=== PATIENT | female | born 1985 | race Caucasian/White ===

== ENCOUNTER → 2017-10-03 | Outpatient (CLI) | payer OTHER ==
[~2017-10-03] MED LIST: FLUO20CA35 PO; LORA-741 PO; METH500T37 PO; OMEP20CA9 PO; RANI300T2 PO
== END | disposition home or self-care (01) ==
LOC: C.PAPS 14:36
PROVIDERS: ATTEND Physician Assistant
DX: Z01.419 Encounter for gynecological examination (general) (routine) without abnormal findings (principal)

== ENCOUNTER → 2017-10-12 | Outpatient (CLI) | payer BC, OTHER ==
[~2017-10-12] MED LIST changes: +METH-445 PO; -METH500T37 PO
== END | disposition home or self-care (01) ==
LOC: C.PATHSPEC 14:41
PROVIDERS: ATTEND Physician Assistant
DX: D28.0 Benign neoplasm of vulva (principal)

== ENCOUNTER 2020-09-15 07:06 | Inpatient (IN) ==
[2020-09-15] MEDS ORDERED: OXYTOCIN 30 UNITS/500 ML BAG IV PRN ×3 (08:07→22:35)
[2020-09-15] MEDS ORDERED: PENICILLIN G POTASSIUM 6 MU in DEXTROSE 5% 250 ML IV STA (08:11)
--- NOTE | 2020-09-15 08:15 | History & Physical Report ---
Date of Service September 15, 2020 Assessment & Plan Admission and Anticipated Discharge Date Admission Date: September 15, 2020 IUP presents in labor requesting epidural analgesia please see orders - will treat for GBS carrier status based on urine culture results anticipate vaginal History of Present Illness Primary Care Provider: NO PCP Patient is a 34 yo white female G1 who presents to L& after having contractions all night long following placement of cervical balloon that fell out at 2315 last PM. contractions have gotten steadily closer together & more intense. no SPROM but she has ahd increased bloody show. GBS (+) in urine. complicated by AMA status & diet controlled GDM. Allergies Allergy/AdvReac Type Severity Reaction Status Date / Time No Known Drug Allergies Allergy Unknown Verified 09/15/20 07:18 Home Medications Medication Instructions Recorded Confirmed Type acetone (urine) test #50 ea 07/24/20 09/14/20 Rx lancets 33 gauge #150 ea 07/28/20 09/14/20 Rx blood sugar diagnostic #400 ea 07/29/20 09/14/20 Rx lancets #400 ea 07/29/20 09/14/20 Rx ferrous sulfate 325 mg PO DAILY 09/14/20 09/15/20 History vit no.[id number] 1 tab PO DAILY 09/14/20 09/15/20 History [ Vitamin] Patient History Medical History Abnormal biochemical finding on screening of mother Dermal nevus Elderly primigravida Encounter for supervision in primigravida, antepartum Gestational diabetes mellitus (GDM) affecting , antepartum History of depression History of migraine Surgical History Hx of biopsy vulva S/P lymph node biopsy Neck lymph node; benign Family History Denies family history of Ovarian cancer Breast cancer Colonic polyp Uterine cancer Social History Smoking Status: Current every day smoker Cigarettes Per Day: 7; Second Hand Exposure: No; Hx Alcohol Use: Yes Hx Substance Use: No Preferred Language: Uzbek Beliefs That Will Affect Care: None marital status: Single marital status details: Bebeto Farnsworth (38) [phone] Current Living Situation: Significant Other Current Living Situation Comment: lives with fob, dogs, cats-fob to change litter current occupational status: employed current occupation: nurse [employer] Other Information That Helps Us Care for You: No Feels Safe at Home: Yes Safety Concerns: Feels Safe At This Time Dental Care, Regularly: Yes Seatbelt Use: always Sunscreen Use: Yes Assistive Devices: None Review of Systems All systems reviewed & are unremarkable except as noted in HPI & below Physical Exam Constitutional: WD/WN, vitals as above Respiratory: normal respiratory effort, lungs clear to auscultation Cardiovascular: RRR, no murmur, no edema Gastrointestinal (Abdomen): normal bowel sounds, soft, nontender, no hepatosplenomegaly Psychiatric: A+Ox3, euthymic affect Genitourinary: OB Exam Abdomen: + vertex, + estimated weight (7-8 pounds) and + regular contractions (Q 5-6 minutes) Manual OB Exam: + cervical dilation (posterior) 5 cm, + cervical effacement 90% and + station 0 OB Exam Monitor Tracing: + external FHT monitor used, + external uterine monitor used, + category I and + normal FHT variability Results & Data ([facility]) Vital Signs (Past 12 Hours) Vital Signs Temp Pulse Resp BP 09/15/20 07:17 97.9 F 18 09/15/20 07:15 99 H 119/87 Coding Level of Care Code None
[2020-09-15] MEDS: LACTATED RINGER'S 1,000 ML IV PRN ×3 (08:22→16:17)
[2020-09-15] MEDS ORDERED: SODIUM CHLORIDE 0.9% INJ 10 ML VIAL ONE (08:26)
[2020-09-15] MEDS ORDERED: ePHEDrine sulfate 50 MG/ML AMP ONE (08:26)
[2020-09-15] MEDS ORDERED: BUPIVACAINE 0.25% 30 ML VIAL ONE (08:26)
[2020-09-15] MEDS ORDERED: fentaNYL 2MCG/ML ROPIVACAINE 1.25MG/ML 100 ML BAG EPI ONE (08:27)
[2020-09-15] MEDS ORDERED: fentaNYL citrate 100 MCG/2 ML VIAL ONE (08:27)
[2020-09-15 08:34] LABS: Hematocrit (blood only) 38.6 % (37-47); Hemoglobin 13.1 g/dL (12.0-16.0); Mean Corpuscular Hemoglobin 33.6 pg (25-34); Platelet Count 247 K/uL (130-400); RDW Coefficient of Variation 14.1 % (11.5-14.5); RDW Standard Deviation 50.4 fL (36.4-46.3); White Blood Count 16.24 K/uL (4.8-10.8)
[2020-09-15 08:37] LABS: Mean Corpuscular Hgb Conc 33.9 g/dL (32-36)
--- NOTE | 2020-09-15 09:00 | History & Physical Report ---
Date of Service September 15, 2020 Assessment & Plan (1) Prolonged , antepartum: -Tracing is category 2 with variability and accelerations -Patient is uncomfortable with contractions and an epidural will be placed -Patient with positive beta strep, will be started on penicillin -After her second penicillin dose we will have artificial rupture of membranes -If contractions space out after epidural will start Pitocin augmentation -Anticipate vaginal delivery Admission and Anticipated Discharge Date Admission Date: September 15, 2020 History of Present Illness Chief Complaint: Postdates induction Primary Care Provider: NO PCP TheThe patient is a 34-year-old 1 para 0, EDC of 11 September by dates and first trimester ultrasound, who admits for a post dates induction. The patient's was remarkable for gestational diabetes diagnosed at 28 weeks. She was followed per protocol and all abdominal circumferences were less than the 75th percentile. She was managed with diet alone. The patient had a cervical Queen placed last night for ripening. Queen dislodged at 11:30 PM. The contractions have increased in intensity and she presented to labor and delivery this morning for induction/labor check. Laboratory values for the show blood type of O-, antibody negative, she received RhoGam on 24 June, she was rubella immune, hepatitis B negative, she declined all genetic testing, and she had positive GBS bacteria. Patient was COVID-19 negative on 10 September. Allergies Allergy/AdvReac Type Severity Reaction Status Date / Time No Known Drug Allergies Allergy Unknown Verified 09/15/20 07:18 Home Medications Medication Instructions Recorded Confirmed Type acetone (urine) test #50 ea 07/24/20 09/14/20 Rx lancets 33 gauge #150 ea 07/28/20 09/14/20 Rx blood sugar diagnostic #400 ea 07/29/20 09/14/20 Rx lancets #400 ea 07/29/20 09/14/20 Rx ferrous sulfate 325 mg PO DAILY 09/14/20 09/15/20 History vit no.[id number] 1 tab PO DAILY 09/14/20 09/15/20 History [ Vitamin] Patient History Medical History Abnormal biochemical finding on screening of mother Dermal nevus Elderly primigravida Encounter for supervision in primigravida, antepartum Gestational diabetes mellitus (GDM) affecting , antepartum History of depression History of migraine Surgical History Hx of biopsy vulva S/P lymph node biopsy Neck lymph node; benign Family History Denies family history of Ovarian cancer Breast cancer Colonic polyp Uterine cancer Social History Smoking Status: Current every day smoker Cigarettes Per Day: 7; Second Hand Exposure: No; Hx Alcohol Use: Yes Hx Substance Use: No Preferred Language: Burkinan Beliefs That Will Affect Care: None marital status: Single marital status details: Bebeto Farnsworth (39) [phone] Current Living Situation: Significant Other Current Living Situation Comment: lives with fob, dogs, cats-fob to change litter current occupational status: employed current occupation: nurse [employer] Other Information That Helps Us Care for You: No Feels Safe at Home: Yes Safety Concerns: Feels Safe At This Time Dental Care, Regularly: Yes Seatbelt Use: always Sunscreen Use: Yes Assistive Devices: None Physical Exam Constitutional: WD/WN, vitals as above Respiratory: Auscultation: lungs clear to auscultation bilaterally Cardiovascular: RRR, no murmur, no edema Extremities: no calf tenderness Gastrointestinal (Abdomen): Gravid, vertex, positive heart tones, estimated weight of 7-1/2 pounds. Genitourinary: Cervix: 4 to 5 cm / 90%/-2/mid position/bulging membranes Results & Data ([facility]) Vital Signs (Past 12 Hours) Vital Signs Temp Pulse Resp BP 09/15/20 07:17 97.9 F 18 09/15/20 07:15 99 H 119/87 Coding Level of Care Code None Diagnoses Prolonged , antepartum O48.1
--- NOTE | 2020-09-15 09:28 | Anesthesiology Consultation ---
Date of Service September 15, 2020 Assessment & Plan Chart Review Chart Review: Patient NOT seen in Pre Admission Testing and Acceptable Risk for Labor Epidural Consults Requested none ASA ASA3 Proposed Anesthesia Anesthesia Type: Labor Epidural and CSE Risk / Benefits Reviewed With: PT / POA / Parent / Guardian, Accepts Plan and Informed Consent Obtained Additional Comments: covid test negative History Height/Weight Height: 5 ft 6 in Weight: 94.347 kg Allergies Allergy/AdvReac Type Severity Reaction Status Date / Time No Known Drug Allergies Allergy Unknown Verified 09/15/20 07:18 Medications Home Medications Medication Instructions Recorded Confirmed Last Taken acetone (urine) test #50 ea 07/24/20 09/14/20 Unknown lancets 33 gauge #150 ea 07/28/20 09/14/20 Unknown blood sugar diagnostic #400 ea 07/29/20 09/14/20 Unknown lancets #400 ea 07/29/20 09/14/20 Unknown ferrous sulfate 325 mg PO DAILY 09/14/20 09/15/20 09/14/20 17:00 vit no.[id number] 1 tab PO DAILY 09/14/20 09/15/20 09/15/20 06:30 [ Vitamin] Active Medications Generic Name Dose Route Start Last Admin Trade Name Freq PRN Reason Stop Dose Admin Lactated Ringer's 1,000 mls @ 125 mls/hr 09/15/20 08:07 09/15/20 09:21 Lr IV 09/17/20 08:06 125 mls/hr .Q8H PRN Administration L&D Protocol Protocol NPO Date Last Intake of Fluids: 09/15/20 Time Last Intake of Fluids: 08:00 Date Last Intake of Solids: 09/15/20 Time Last Intake of Solids: 06:30 Past Medical History Medical History Abnormal biochemical finding on screening of mother Dermal nevus Elderly primigravida Encounter for supervision in primigravida, antepartum Gestational diabetes mellitus (GDM) affecting , antepartum History of depression History of migraine Exercise / Class Metabolic Activity II 4-5 Yardwork/Stairs/Walk up hill Past Family History Family History Denies family history of Ovarian cancer Breast cancer Colonic polyp Uterine cancer Past Surgical History Surgical History Hx of biopsy vulva S/P lymph node biopsy Neck lymph node; benign Past Anesthesia History No Hx of Anesthesia Complications and No Family Hx of Anesthesia Complications History of PONV No Hx of PONV and No Hx of Motion Sickness Social History Smoking Status: Current every day smoker tobacco type: cigarettes Smoking cigarettes per day: 7 Hx Alcohol Use: Yes Hx Substance Use: No substance use type: does not use Physical Exam Vital Signs Last Vital Signs Temp 36.6 C 09/15/20 07:17 Pulse 85 09/15/20 09:20 Resp 18 09/15/20 07:17 BP 119/87 09/15/20 07:15 Pulse Ox 98 09/15/20 09:20 Constitutional + obese ENMT Mouth: no dentition abnormality Thyromental Distance: > or= 3.5 Finger Breadths Mallampati Class: II Neck normal visual inspection and trachea midline; neck extension not limited Respiratory normal respiratory effort, lungs clear to auscultation normal respiratory effort Auscultation: lungs clear to auscultation bilaterally Cardiovascular RRR, no murmur, no edema Rate/Rhythm: regular rate and regular rhythm Heart Sounds: no murmur Vessels: no carotid bruit Musculoskeletal Head/Neck/Chest: full ROM of neck Spine: lumbar spine normal to inspection; normal cervical ROM Neurologic moves all extremities Motor/Sensory: no sensory deficit Psychiatric A+Ox3, euthymic affect Orientation: alert and oriented x 3 Testing Laboratory Results 09/15/20 08:19
[2020-09-15] MEDS ORDERED: LIDOCAINE HCL 1% 20 ML VIAL ONE (09:41)
[2020-09-15] MEDS ORDERED: fentaNYL 2MCG/ML ROPIVACAINE 1.25MG/ML 100 ML BAG EPI PRN (09:52)
[2020-09-15] MEDS ORDERED: diphenhydrAMINE 50 MG/ML VIAL IV PRN (09:52)
[2020-09-15] MEDS ORDERED: PROMETHAZINE HCL 25 MG in SODIUM CHLORIDE 0.9% 50 ML IV PRN (09:52)
[2020-09-15] MEDS ORDERED: ONDANSETRON INJ 2 MG/ML 2 ML VIAL IV PRN (09:52)
[2020-09-15] MEDS ORDERED: ePHEDrine sulfate 50 MG/ML AMP IV PRN (09:52)
[2020-09-15] MEDS ORDERED: NALOXONE HCL 0.4 MG/1 ML VIAL/CARP IV PRN (09:52)
[2020-09-15] MEDS ORDERED: NALOXONE HCL 1 MG in SODIUM CHLORIDE 0.9% 1000ML 1,000 ML IV PRN (09:52)
[2020-09-15] MEDS: PENICILLIN G POTASSIUM 3 MU in DEXTROSE 5% 100 ML IV PRN ×2 (12:24→16:30)
--- NOTE | 2020-09-15 13:44 | Labor Progress Brief Note ---
Date of Service September 15, 2020 Subjective Reason For Note: Routine Evaluation Assessment & Plan (1) Prolonged , antepartum: - tracing Cat II - IUPC placed to better titrate pitocin - continue induction Admission and Anticipated Discharge Date Admission Date: September 15, 2020 Physical Exam Genitourinary: Cervix: 5/100/0, AROM. meconium, IUPC placed Results & Data ([facility]) Vital Signs (Past 12 Hours) Vital Signs Temp Pulse Resp BP Pulse Ox 09/15/20 13:40 82 99 09/15/20 13:35 85 98 09/15/20 13:32 82 118/65 91 09/15/20 13:30 88 95 09/15/20 13:25 84 98 09/15/20 13:20 76 98 09/15/20 13:15 78 106/64 99 09/15/20 13:10 90 97 09/15/20 13:09 94 H 93 09/15/20 13:05 76 100 09/15/20 13:00 82 20 109/68 99 09/15/20 12:57 83 93 09/15/20 12:55 80 97 09/15/20 12:51 89 92 09/15/20 12:50 74 100 09/15/20 12:47 85 107/67 09/15/20 12:45 77 18 100 09/15/20 12:40 76 99 09/15/20 12:37 91 H 90 09/15/20 12:35 85 100 09/15/20 12:32 79 122/74 09/15/20 12:30 78 18 100 09/15/20 12:25 83 100 09/15/20 12:20 85 100 09/15/20 12:16 80 128/73 09/15/20 12:15 94 H 16 100 09/15/20 12:14 82 90 09/15/20 12:10 76 98 09/15/20 12:05 81 99 09/15/20 12:01 74 112/63 09/15/20 12:00 75 20 100 09/15/20 11:58 100 H 94 09/15/20 11:55 86 97 09/15/20 11:50 78 100 09/15/20 11:46 96 H 91 09/15/20 11:45 91 H 18 99 09/15/20 11:40 76 98 09/15/20 11:39 79 116/66 09/15/20 11:35 85 99 09/15/20 11:34 87 111/71 09/15/20 11:30 83 20 113/75 100 09/15/20 11:25 85 99 09/15/20 11:24 85 117/74 09/15/20 11:20 90 99 09/15/20 11:19 90 115/74 09/15/20 11:18 100 H 93 09/15/20 11:15 88 16 98 09/15/20 11:14 94 H 116/67 09/15/20 11:10 81 117/67 98 09/15/20 11:05 84 98 09/15/20 11:04 85 114/67 09/15/20 11:00 97.9 F 91 H 18 98 09/15/20 10:59 81 112/67 09/15/20 10:55 88 97 09/15/20 10:54 86 115/66 09/15/20 10:50 82 116/69 100 09/15/20 10:45 85 16 100 09/15/20 10:44 101 H 103/59 L 09/15/20 10:40 83 99 09/15/20 10:38 87 113/68 09/15/20 10:36 88 114/67 09/15/20 10:35 83 98 09/15/20 10:34 83 110/64 09/15/20 10:32 86 108/64 09/15/20 10:30 88 16 108/62 99 09/15/20 10:28 88 106/61 09/15/20 10:26 96 H 109/71 92 09/15/20 10:25 100 H 106/64 99 09/15/20 10:22 85 128/67 09/15/20 10:20 96 H 122/58 L 99 09/15/20 10:18 95 H 127/59 L 09/15/20 10:16 89 132/66 09/15/20 10:15 102 H 18 99 09/15/20 10:14 98 H 121/63 09/15/20 10:12 98 H 131/72 09/15/20 10:10 89 129/66 100 09/15/20 10:08 100 H 117/58 L 09/15/20 10:06 93 H 115/61 09/15/20 10:05 92 H 100 09/15/20 10:04 90 108/63 09/15/20 10:02 103 H 104/56 L 09/15/20 10:01 93 H 121/68 09/15/20 10:00 97 H 18 99 09/15/20 09:58 114 H 100/57 L 09/15/20 09:56 91 H 108/63 09/15/20 09:55 94 H 100 09/15/20 09:54 93 H 98/58 L 09/15/20 09:52 88 88/52 L 09/15/20 09:50 86 98 09/15/20 09:45 89 98 09/15/20 09:40 94 H 96 09/15/20 09:37 91 H 94 09/15/20 09:35 83 98 09/15/20 09:30 90 97 09/15/20 09:25 94 H 96 09/15/20 09:20 85 98 09/15/20 09:15 95 H 99 09/15/20 09:10 89 99 09/15/20 07:17 97.9 F 18 09/15/20 07:15 99 H 119/87 Coding Level of Care Code None Diagnoses Prolonged , antepartum O48.1
--- NOTE | 2020-09-15 20:00 | Delivery Summary ---
Vaginal Delivery Summary Date of Service September 15, 2020 Vaginal Delivery Summary Findings: Viable male infant with Apgars of 8 and 9. Arterial and venous cord gases are pending. Baby delivered over midline second-degree laceration. Meconium at . Good vigorous cry at terminating meconium resuscitation. Cord gases cord blood samples obtained. Placenta delivered spontaneously. Laceration repaired with 4-0 Vicryl. Estimated blood loss 300 cc. Labor note: The patient is a 34-year-old 1 para 0, EDC of 11 September by dates and first trimester ultrasound, who admits for a post dates induction. The patient's was remarkable for gestational diabetes diagnosed at 28 weeks. She was followed per protocol and all abdominal circumferences were less than the 75th percentile. She was managed with diet alone. The patient had a cervical Queen placed last night for ripening. Queen dislodged at 11:30 PM. The contractions have increased in intensity and she presented to labor and delivery this morning for induction/labor check. Laboratory values for the show blood type of O-, antibody negative, she received RhoGam on 24 June, she was rubella immune, hepatitis B negative, she declined all genetic testing, and she had positive GBS bacteria. Patient was COVID-19 negative on 10 September. The patient was a 4 cm upon arrival and was very uncomfortable. Because of the positive GBS status she was started on penicillin. Anesthesia was consulted and an epidural was placed. After placement of the epidural the patient's contractions spaced out and Pitocin augmentation was initiated. After her second dose of penicillin was then she had artificial rupture of membranes for meconium. Intrauterine pressure catheter was placed to monitor contractions. Patient made slow steady progress and progressed to full dilatation. She pushed for approximately 1 hour delivering the viable male . Cord gases cord blood samples obtained. Good vigorous cry at terminating meconium resu scitation. Placenta delivered spontaneously. Inspection of the perineum showed a second-degree perineal laceration which was repaired with 4-0 Vicryl. Estimated blood loss 300 cc. Sponge and needle count was correct. [facility] Vaginal Delivery Charge Vaginal Delivery Codes: 60324 global code for the antepartum, delivery, and post-
[2020-09-15 20:15] LABS: Base Excess Cord Arterial Bld -8.4 mEq/L (-9-1.8); CO2 Cord Arterial Blood 46 mmHg (39.1-73.5); HCO3 Cord Arterial Blood 19 mmol/L (19.7-28.5); PO2 Cord Arterial Blood 28 mmHg (4.1-31.7); pH Cord Arterial Blood 7.23 (7.1-7.38)
--- NOTE | 2020-09-15 20:30 | Anesthesia Procedure Note ---
Date of Service September 15, 2020 Anesthesia Post Epidural Note Vital Signs Vital Signs: Temp Pulse Resp BP Pulse Ox 37.3 C 102 H 18 126/72 84 L 09/15/20 19:40 09/15/20 20:15 09/15/20 20:10 09/15/20 20:15 09/15/20 19:44 Pain Intensity Bilateral Back: Pain Intensity: 0 Notes Mental Status: alert / awake / arousable Nausea / Vomiting: adequately controlled Pain: adequately controlled Airway Patency, RR, SpO2: stable & adequate BP & HR: stable & adequate Hydration State: stable & adequate Neuraxial Anesthesia: was administered and sensory block is resolving Anesthetic Complications: no major complications apparent Epidural: Removed without complications and With tip intact
[2020-09-15] MEDS: IBUPROFEN 600 MG TAB PO PRN (20:57)
[2020-09-15] MEDS ORDERED: HYDROCORTISONE ACETATE 25 MG SUPP PR PRN (22:35)
[2020-09-15] MEDS ORDERED: DIPHTHERIA/TETANUS/PERTUSSIS 0.5 ML SYR/VIAL IM ONE (22:35)
[2020-09-15] MEDS ORDERED: SUPERCREAM 0.870% 15 GM JAR EXT PRN (22:35)
[2020-09-15] MEDS ORDERED: BENZOCAINE 20% AER SPR 82.5 GM CAN EXT PRN (22:35)
[2020-09-15] MEDS ORDERED: ACETAMINOPHEN 325 MG TAB PO PRN (22:35)
[2020-09-15] MEDS ORDERED: ACETAMINOPHEN W/CODEINE #3 1 TAB PO PRN (22:35)
[2020-09-16] MEDS: IBUPROFEN 600 MG TAB PO PRN ×4 (01:03→20:39)
[2020-09-16] MEDS ORDERED: miSOPROStoL 200 MCG TAB PR ONE (05:55)
[2020-09-16] MEDS ORDERED: miSOPROStoL 200 MCG TAB ONE (05:55)
--- NOTE | 2020-09-16 06:11 | Obstetrical Progress Note ---
Date of Service September 16, 2020 Assessment & Plan (1) bleeding: -Most of a blood clot within the uterus has been evacuated -Patient may not be completely emptying her bladder -We will insert a Queen catheter to drain bladder continuously in the short-term -We will place Cytotec 800 mcg rectally -We will check a stat H&H -Explained situation to the patient, all questions answered -Continued observation of bleeding Subjective called by nursing to evaluate vaginal bleeding patient states that she feels like she has a difficulty emptying her bladder. When she got up she passed clot. Nurse hung a second bag of Pitocin but she is still saturating a pad. Physical Exam Constitutional WD/WN, vitals as above Gastrointestinal (Abdomen) Fundus firm below umbilicus Musculoskeletal No deep calf tenderness Genitourinary Digital examination shows the cervix to be dilated approximately 400 cc of clotted and nonclotted blood are expressed. Results & Data ([facility]) Vital Signs (Past 12 Hours) Vital Signs Temp Pulse Pulse Resp BP BP Pulse Ox 09/16/20 04:45 97.5 F L 92 H 18 118/80 09/16/20 00:00 97.7 F 82 18 118/73 09/15/20 22:38 98.6 F 99 H 18 107/63 09/15/20 21:40 18 09/15/20 21:30 113 H 114/71 09/15/20 21:16 106 H 116/73 09/15/20 21:10 18 09/15/20 21:00 110 H 131/67 09/15/20 20:45 103 H 126/71 09/15/20 20:40 18 09/15/20 20:25 18 09/15/20 20:15 102 H 126/72 09/15/20 20:10 18 09/15/20 20:00 90 118/81 09/15/20 19:45 111 H 120/73 09/15/20 19:44 98 H 84 L 09/15/20 19:40 99.1 F 101 H 18 99 09/15/20 19:35 96 H 97 09/15/20 19:31 98 H 134/71 09/15/20 19:30 104 H 97 09/15/20 19:25 101 H 72 L 09/15/20 19:24 105 H 78 L 09/15/20 19:20 100 H 98 09/15/20 19:16 99 H 76 L 09/15/20 19:15 108 H 138/77 98 09/15/20 19:10 95 H 97 09/15/20 19:08 89 77 L 09/15/20 19:05 84 98 09/15/20 19:03 101 H 84 L 09/15/20 19:00 90 98 09/15/20 18:57 97 H 78 L 09/15/20 18:55 83 99 09/15/20 18:50 96 H 99 09/15/20 18:48 100 H 87 L 09/15/20 18:46 86 124/67 09/15/20 18:45 87 98 09/15/20 18:40 96 H 98 09/15/20 18:35 91 H 117/62 98 09/15/20 18:30 93 H 20 96 09/15/20 18:27 104 H 86 L 09/15/20 18:25 98 H 96 09/15/20 18:20 91 H 100 09/15/20 18:15 82 98/56 L 96 09/15/20 18:10 94 H 100
[2020-09-16 06:44] LABS: Hematocrit (blood only) 30.1 % (37-47); Hemoglobin 10.2 g/dL (12.0-16.0)
[2020-09-16] MEDS: DOCUSATE SODIUM 100 MG CAP PO SCH ×2 (09:13→20:39)
[2020-09-16] MEDS: PRENATAL VITAMIN 1 TAB PO SCH (09:13)
[2020-09-16] MEDS: FERROUS SULFATE 325 MG TAB PO SCH (09:18)
[2020-09-16] MEDS: CALCIUM CARBONATE 500 MG CHEWABLE TAB PO PRN (17:35)
--- NOTE | 2020-09-16 18:45 | Obstetrical Progress Note ---
Date of Service September 16, 2020 Assessment & Plan (1) bleeding: Bleeding is much improved from previously per pt report. Will repeat CBC. Consider PO methergine course pending CBC. Discussed w/ pt, amenable. Admission and Anticipated Discharge Date Admission Date: September 15, 2020 Subjective Made aware by nursing that had passed a clot half the size of the prior clot today. Pt overall feels well, but only feels lightheaded when she passes the clot. Otherwise is able to walk without lightheadedness or dizziness. Bleeding has drastically improved since clot removal and cytotec placement Physical Exam Constitutional: well developed and well nourished; no acute distress Respiratory: normal respiratory effort; no respiratory distress and no labored breathing Gastrointestinal (Abdomen): soft, NT, fundus firm and NT at umbilicus. With fundal massage, no leaking is noted from vagina. Pt notes it was gushing earlier with fundal massage Results & Data ([facility]) Vital Signs (Past 12 Hours) Vital Signs Temp Pulse Resp BP Pulse Ox 09/16/20 15:20 98.1 F 104 H 18 123/79 97 09/16/20 13:00 98.2 F 97 H 18 122/70 99 09/16/20 07:25 98.4 F 109 H 18 111/75 99 PG Care Time/CCT Total # of Minutes Spent Total Time Spent with Patient: Total time spent is greater than 50% in coordination of care (as documented) at patient's floor/unit and/or counseling patient: Coding Level of Care Code None Diagnoses bleeding O72.1
[2020-09-16 18:53] LABS: Hematocrit (blood only) 27.8 % (37-47); Hemoglobin 9.5 g/dL (12.0-16.0); Mean Corpuscular Hemoglobin 34.1 pg (25-34); Mean Corpuscular Volume 99.6 fL (80-100); Mean Platelet Volume 8.6 fL (7.4-10.4); Platelet Count 174 K/uL (130-400); RDW Coefficient of Variation 14.2 % (11.5-14.5); RDW Standard Deviation 51.9 fL (36.4-46.3); Red Blood Count 2.79 M/uL (4.2-5.4); White Blood Count 15.25 K/uL (4.8-10.8)
[2020-09-16 18:58] LABS: Mean Corpuscular Hgb Conc 34.2 g/dL (32-36)
[2020-09-16] MEDS ORDERED: bisacodyL 5 MG TABEC PO SCH (20:00)
[2020-09-16] MEDS: METHYLERGONOVINE MALEATE 0.2 MG TAB PO SCH (20:39)
[2020-09-17] MEDS: METHYLERGONOVINE MALEATE 0.2 MG TAB PO SCH ×2 (02:21→08:35)
[2020-09-17] MEDS: CALCIUM CARBONATE 500 MG CHEWABLE TAB PO PRN (02:21)
[2020-09-17] MEDS: IBUPROFEN 600 MG TAB PO PRN ×2 (02:21→06:29)
[2020-09-17 06:28] LABS: Hematocrit (blood only) 31.6 % (37-47); Hemoglobin 10.6 g/dL (12.0-16.0)
--- NOTE | 2020-09-17 07:55 | Obstetrical Progress Note ---
Date of Service September 17, 2020 Assessment & Plan (1) : 34 yo PP2 from , c/b manual extraction of clots yesterday w/ EBL 400 doing well -Meeting all pp milestones -O-/rubella immune/ -pt able to ambulate few times w/o lightheadedness, seems to note it more when moving more quickly. Encouraged to slow down and stabilize herself before walking, thinks that helps. H/H stable and bleeding has continued to improve on PO methergine course. Will just complete it here -f/u 6 weeks for appt Subjective Ambulation: ambulating normally Voiding: no voiding problems Passing Gas:: Yes Diet Tolerance:: regular diet Lochia:: Small Feeding Type:: breast feeding Pain well managed with medication. Bleeding is like a period now, is much better than yesterday. Was able to walk a lap yesterday and was fine. Intermittently will feel lightheaded when walking, H/H was improved today from yesterday Review of Systems Denies fevers, chills, n/v, CHI, CP, SOB Physical Exam Constitutional WD/WN, vitals as above + not well nourished and no acute distress Respiratory normal respiratory effort; no respiratory distress and no labored breathing Auscultation: lungs clear to auscultation bilaterally Cardiovascular RRR, no murmur, no edema Extremities: no calf tenderness and no pedal edema No calf erythema Gastrointestinal (Abdomen) Inspection/Auscultation: abdomen normal to inspection Percussion/Palpation: abdomen soft; abdomen nontender and no guarding Fundus firm below umbilicus, NT Psychiatric A+Ox3, euthymic affect Results & Data ([facility]) Vital Signs (Past 12 Hours) Vital Signs Temp Pulse Resp BP Pulse Ox 09/17/20 03:05 97.9 F 86 16 118/73 97 09/16/20 23:15 97.7 F 87 18 111/72 98 Laboratory Results 09/17/20 09/16/20 Range/Units 05:55 18:44 WBC 15.25 H (4.8-10.8) K/uL RBC 2.79 L (4.2-5.4) M/uL Hgb 10.6 L 9.5 L (12.0-16.0) g/dL Hct 31.6 L 27.8 L (37-47) % MCV 99.6 (80-100) fL MCH 34.1 H (25-34) pg MCHC 34.2 (32-36) g/dL RDW Std Deviation 51.9 H (36.4-46.3) fL RDW Coeff of Tara 14.2 (11.5-14.5) % Plt Count 174 (130-400) K/uL MPV 8.6 (7.4-10.4) fL
[2020-09-17] MEDS: DOCUSATE SODIUM 100 MG CAP PO SCH (08:34)
[2020-09-17] MEDS: FERROUS SULFATE 325 MG TAB PO SCH (08:34)
[2020-09-17] MEDS: PRENATAL VITAMIN 1 TAB PO SCH (08:34)
== END 2020-09-17 10:45 | disposition home or self-care (01) | DRG 806 ==
LOC: 4S1 07:06 → 4S2 22:40